=== PATIENT | male | born 1950 | race Caucasian/White ===

== ENCOUNTER → 2017-04-26 07:49 | Day surgery (SDC) | payer OTHER ==
[~2017-04-26 07:49] MED LIST: Diazepam TAB(*) 5 MG ONE; Heparin 2 UNITS/ML IVPREMIX* 3,000 ML IV ONE; Iohexol 350 (CONTRAST) 200 ML MDV IV ONE; Lidocaine 1% INJ* 10 MG/ML 30 ML SDV ONE; Midazolam* 1 MG/ML 10 ML VIAL (10 MG) ONE; NS 0.9% 1000 ML* 1,000 ML IV SCH; diPHENhydraMINE PO* 25 MG ONE; fentaNYL* 50 MCG/ML 2 ML VIAL (100 MCG VIAL) ONE
[2017-04-26 13:04] VITALS: BP 119/63
--- NOTE | 2017-04-27 09:58 | CATH ---
CC: Dr. Javi Bravo; Dr. Domingo Alcantar, [facility] [place], [facility] DATE OF CARDIAC CATHETERIZATION: 04/26/2017. PROCEDURE PERFORMED: Cardiac catheterization. INDICATION: Aortic stenosis. PROCEDURE INCLUDED: Left heart catheterization, coronary angiography. HISTORY: The patient is a 66-year-old gentleman with a history of known aortic stenosis. Recently, the patient had been getting some mild chest pain with exertion. A recent echocardiogram showed a no rmal LV size and systolic function, severe aortic stenosis with a mean gradient of 40 mmHg, a peak ve locity of 4 m/sec. Recent cardiac stress test showed an area of ischemia to his lateral wall. Cardia c catheterization was recommended. PROCEDURE: The patient was brought to the cardiac catheterization lab in a fasting state. Informed consent had been obtained prior to the procedure. All labs have been reviewed. The patient was plac ed supine on the procedure table. His femoral areas were cleaned and draped in the usual fashion. O ne percent Lidocaine was used for local anesthesia. The right femoral artery was entered via modifie d Seldinger technique and a 6 Armenian sheath introducer was placed. The patient underwent left heart catheterization and coronary angiography using a 6 Armenian pigtail catheter, 6 Armenian JL4 catheter, an d 6 Armenian JR4 catheter. The aortic valve was able to be crossed with a straight wire, but unable to advance a catheter across the aortic valve. At the end of the procedure, an angiogram of the femoral artery demonstrated norm al position and a Mynx closure device was deployed. The patient tolerated the procedure well. There were no complications. A total of 60 cc of Omnipaque dye was used. A total of 5.2 minutes of fluoro time was used. FINDINGS: Hemodynamic central aortic blood pressure 114/72. Coronary Arteries: 1. Left main artery: The left main was normal in size. It bifurcated into the LAD and circumflex. There was an ostial stenosis of the left main of at least 50 percent. There was dampening of the ca theter when the left main was engage. The distal left main had a 20 percent stenosis. 2. Left anterior descending artery: The LAD was normal in size. It gave off one diagonal vessel. The mid portion of the diagonal vessel had an eccentric 80 percent stenosis. The remainder of the ve ssel was without disease. The D1 vessel was without disease. 3. Left circumflex artery: The circumflex artery was normal in size. It gave off two obtuse margin al branches. The proximal portion of the left circumflex artery had an eccentric [address] enosis. The remainder of the vessel was without disease. 4. Right coronary artery: The RCA was occluded at its origin. There was faint wvxyi-gv-oyydn colla terals. There was faint vvwq-mo-zyibb collaterals to the PDA and posterolateral branches. IMPRESSION: 1. Severe stenosis to the ostial left main with at least a 50 percent stenosis. There was dampening of the catheter on engagement of the left main. 2. Eighty percent stenosis to the mid left anterior descending artery. 3. Eighty to ninety percent stenosis of the proximal left circumflex artery. 4. Occluded right coronary artery. 5. Mynx device to the right femoral artery. RECOMMENDATIONS: The patient will be referred for aortic valve replacement and coronary bypass surge ry. [id number] #: [id number]
== END | disposition home or self-care (01) ==
LOC: CHICATH 07:49
PROVIDERS: ATTEND Specialist
DX: I35.0 Nonrheumatic aortic (valve) stenosis (principal); I25.10 Atherosclerotic heart disease of native coronary artery without angina pectoris; I73.9 Peripheral vascular disease, unspecified; I10 Essential (primary) hypertension; Z87.891 Personal history of nicotine dependence
CPT/HCPCS: 93454; 99156; 99157; A9270-GY; C1760; C1769; C1887; J1644; J2250; J3010

== ENCOUNTER 2020-04-29 07:02 | Inpatient (IN) ==
[2020-04-29] MEDS ORDERED: NS 0.9% 1000 ml BAG 1,000 ML IV ONE ×2 (07:33→09:07)
[2020-04-29 07:45] LABS: ABS Lymphocytes 1.5 10^3/ul (1.0-4.8); ABS Monocytes 0.5 10^3/ul (0-0.8); ABS Neutrophils 9.9 10^3/ul (1.5-7.7); Eosinophil % 0.4 %; Hematocrit 37 % (42-52); Hemoglobin 12.5 g/dL (14.0-18.0); Lymphocyte % 12.5 %; Mean Corpuscular HGB Conc 34 g/dL (31-36); Mean Corpuscular Hemoglobin 33 pg (27-31); Mean Corpuscular Volume 99 fL (80-94); Mean Platelet Volume 9.4 fL (7.4-10.4); Platelet Count 176 10^3/uL (150-450); Red Blood Count 3.77 10^6 /uL (4.18-5.48); Red Cell Distribution Width 13 % (10-15); White Blood Count 11.9 10^3/uL (3.5-10.8)
[2020-04-29 08:03] LABS: ALT 19 U/L (7-52); AST 20 U/L (13-39); Albumin 3.6 g/dL (3.2-5.2); Albumin/Globulin Ratio 1.3 (1-3); Alkaline Phosphatase 45 U/L (34-104); Anion Gap 7 mmol/L (2-11); BUN/Creatinine Ratio 45.9 (8-20); Blood Urea Nitrogen 51 mg/dL (6-24); CO2 Carbon Dioxide 25 mmol/L (22-32); Calcium 9.1 mg/dL (8.6-10.3); Chloride 103 mmol/L (101-111); EGFR African American 79.7 (>60); EGFR Non-African American 65.9 (>60); Globulin 2.7 g/dL (2-4); Glucose 181 mg/dL (70-100); Potassium 4.8 mmol/L (3.5-5.0); Sodium 135 mmol/L (135-145); Total Protein 6.3 g/dL (6.4-8.9)
[2020-04-29] MEDS ORDERED: Pantoprazole 80 mg in NS BAG 80 MG/250 ML BAG IV ONE (08:06)
[2020-04-29] MEDS ORDERED: Pantoprazole VIAL 40 MG VIAL IV ONE (08:06)
[2020-04-29] MEDS ORDERED: Prothrombin Complex Conc. DOSE = Units Factor IX (nine) IV SLOW PU ONE (08:13)
[2020-04-29 08:20] LABS: Troponin I 0.43 ng/mL (<0.03)
[2020-04-29 08:27] LABS: Activated Partial Thrombo Time 23.4 seconds (26.0-38.0); INR 1.78 (0.82-1.09)
[2020-04-29] MEDS: Pantoprazole 80 mg in NS BAG 80 MG/250 ML BAG IV SCH ×2 (12:05→20:24)
[2020-04-29 12:39] LABS: Hematocrit 32 % (42-52); Hemoglobin 10.8 g/dL (14.0-18.0)
[2020-04-29 13:10] LABS: Troponin I 0.44 ng/mL (<0.03)
[2020-04-29] MEDS ORDERED: Midazolam 10 mg/10 ml VIAL 1 mg/ml 10 ml VIAL (10 mg) ONE (13:15)
[2020-04-29] MEDS ORDERED: fentaNYL 100 mcg/2 ml 50 MCG/ML VIAL ONE (13:16)
[2020-04-29 13:40] LABS: TSH Ultra Thyroid Stim Horm 1.24 mcIU/mL (0.34-5.60)
[2020-04-29 14:54] LABS: Hematocrit 33 % (42-52)
[2020-04-29 15:13] LABS: Troponin I 0.59 ng/mL (<0.03)
[2020-04-29 18:03] LABS: Hematocrit 33 % (42-52); Hemoglobin 11.1 g/dL (14.0-18.0)
[2020-04-29 22:20] LABS: Troponin I 0.32 ng/mL (<0.03)
[2020-04-30] MEDS ORDERED: Metoprolol Tartrate 5 mg VIAL 5 ml VIAL (1 mg/ml) IV ONE (03:36)
[2020-04-30] MEDS ORDERED: Metoprolol Tartrate 5 mg VIAL 5 ml VIAL (1 mg/ml) ONE (03:39)
[2020-04-30] MEDS ORDERED: Lactated Ringers 500 ml BAG 500 ML IV ONE (04:11)
[2020-04-30 04:55] LABS: ABS Eosinophils 0.3 10^3/ul (0-0.6); ABS Lymphocytes 2.1 10^3/ul (1.0-4.8); ABS Neutrophils 8.1 10^3/ul (1.5-7.7); Eosinophil % 2.5 %; Hematocrit 28 % (42-52); Hemoglobin 9.6 g/dL (14.0-18.0); Lymphocyte % 18.4 %; Mean Corpuscular HGB Conc 34 g/dL (31-36); Mean Corpuscular Hemoglobin 34 pg (27-31); Mean Corpuscular Volume 99 fL (80-94); Mean Platelet Volume 9.3 fL (7.4-10.4); Platelet Count 130 10^3/uL (150-450); Red Blood Count 2.83 10^6 /uL (4.18-5.48); Red Cell Distribution Width 13 % (10-15); White Blood Count 11.5 10^3/uL (3.5-10.8)
[2020-04-30 05:12] LABS: BUN/Creatinine Ratio 32.6 (8-20); EGFR African American 102.9 (>60); Potassium 4.2 mmol/L (3.5-5.0)
[2020-04-30] MEDS: Pantoprazole 80 mg in NS BAG 80 MG/250 ML BAG IV SCH ×2 (05:47→16:18)
[2020-04-30] MEDS: Digoxin IV 0.5 MG/2 ML AMP (0.25 MG/ML) IV SLOW PU SCH ×2 (07:58→09:41)
[2020-04-30] MEDS ORDERED: DIRECTIONS PO SCH (09:00)
[2020-04-30] MEDS ORDERED: COENZYME Q10 ENTER STREGNTH PO SCH (09:00)
[2020-04-30 09:41] LABS: Magnesium 1.7 mg/dL (1.9-2.7)
[2020-04-30] MEDS ORDERED: Magnesium Sulfate IV 3 GM in NS 0.9% 100 ml BAG 100 ML IVPB ONE (09:58)
[2020-04-30 10:01] LABS: Hematocrit 27 % (42-52); Hemoglobin 9.1 g/dL (14.0-18.0); Mean Corpuscular HGB Conc 34 g/dL (31-36); Mean Corpuscular Hemoglobin 34 pg (27-31); Mean Corpuscular Volume 101 fL (80-94); Mean Platelet Volume 9.5 fL (7.4-10.4); Platelet Count 130 10^3/uL (150-450); Red Blood Count 2.69 10^6 /uL (4.18-5.48); Red Cell Distribution Width 14 % (10-15); White Blood Count 10.5 10^3/uL (3.5-10.8)
[2020-04-30] MEDS ORDERED: Diltiazem IV push/loading dose 5 MG/ML 5 ML vial (25 mg) IV SLOW PU ONE (12:38)
[2020-04-30] MEDS ORDERED: NORMOSOL-R pH 7.4 1000 mL BAG 500 ML IV ONE (14:00)
[2020-04-30] MEDS ORDERED: Amiodarone IV 150 mg/3 ml VIAL SLOW PUSH ONE (15:09)
[2020-04-30] MEDS ORDERED: Amiodarone DRIP 150 MG in D5W 100 ML *LOADING DOSE* OVER 10 MIN IV ONE (15:15)
[2020-04-30] MEDS ORDERED: Amiodarone 360 MG IVPREMIX 360 MG/200 ML BAG IV ONE (15:25)
[2020-04-30] MEDS ORDERED: Digoxin IV 0.5 MG/2 ML AMP (0.25 MG/ML) IV SLOW PU ONE (18:32)
[2020-04-30 20:35] LABS: ABS Eosinophils 0.2 10^3/ul (0-0.6); ABS Lymphocytes 1.9 10^3/ul (1.0-4.8); Eosinophil % 2.1 %; Hematocrit 26 % (42-52); Hemoglobin 8.9 g/dL (14.0-18.0); Lymphocyte % 21.2 %; Mean Corpuscular HGB Conc 35 g/dL (31-36); Mean Corpuscular Hemoglobin 34 pg (27-31); Mean Corpuscular Volume 99 fL (80-94); Platelet Count 129 10^3/uL (150-450); Red Blood Count 2.58 10^6 /uL (4.18-5.48); Red Cell Distribution Width 14 % (10-15); White Blood Count 9.1 10^3/uL (3.5-10.8)
[2020-04-30] MEDS: Amiodarone 360 MG IVPREMIX 360 MG/200 ML BAG IV SCH (22:42)
[2020-05-01] MEDS: Pantoprazole 80 mg in NS BAG 80 MG/250 ML BAG IV SCH (03:49)
[2020-05-01 04:24] LABS: ABS Eosinophils 0.3 10^3/ul (0-0.6); ABS Neutrophils 5.9 10^3/ul (1.5-7.7); Eosinophil % 3.4 %; Hematocrit 26 % (42-52); Hemoglobin 9.1 g/dL (14.0-18.0); Lymphocyte % 21.5 %; Mean Corpuscular HGB Conc 35 g/dL (31-36); Mean Corpuscular Hemoglobin 35 pg (27-31); Mean Corpuscular Volume 99 fL (80-94); Mean Platelet Volume 8.8 fL (7.4-10.4); Platelet Count 128 10^3/uL (150-450); Red Blood Count 2.62 10^6 /uL (4.18-5.48); Red Cell Distribution Width 13 % (10-15); White Blood Count 9.2 10^3/uL (3.5-10.8)
[2020-05-01 04:41] LABS: BUN/Creatinine Ratio 23.9 (8-20); Calcium 8.4 mg/dL (8.6-10.3); EGFR Non-African American 81.8 (>60); Magnesium 2.1 mg/dL (1.9-2.7); Potassium 4.1 mmol/L (3.5-5.0)
[2020-05-01] MEDS ORDERED: Hyaluronidase HUMAN 15 UNIT in Sodium Chloride 0.9% 0.9 ML INTRADERM ONE (07:32)
[2020-05-01] MEDS: Amiodarone 400 mg TAB PO SCH ×2 (10:04→20:04)
[2020-05-01] MEDS: Amiodarone 360 MG IVPREMIX 360 MG/200 ML BAG IV SCH (10:05)
[2020-05-01] MEDS ORDERED: Pantoprazole VIAL 40 MG VIAL IV SCH (12:00)
[2020-05-01] MEDS: Pantoprazole VIAL 40 MG VIAL IV SCH (20:05)
[2020-05-01] MEDS ORDERED: Amiodarone 400 mg TAB PO SCH (21:00)
[2020-05-02] MEDS: Amiodarone 400 mg TAB PO SCH (09:11)
[2020-05-02] MEDS: Pantoprazole VIAL 40 MG VIAL IV SCH (09:12)
[2020-05-02 16:01] VITALS: BP 122/80
[2020-05-02] MEDS ORDERED: Pantoprazole VIAL 40 MG VIAL IV ONE (16:11)
== END 2020-05-02 16:55 | disposition home or self-care (01) | DRG 377 ==
LOC: ED 07:02 → MEDTELE 10:13 → ICU 04-30 09:33 → MEDTELE 05-01 21:03
PROVIDERS: ADMIT Internal Medicine; ATTEND Internal Medicine

== ENCOUNTER 2022-02-16 18:42 | Observation (INO) ==
[2022-02-16 20:00] LABS: ABS Basophils 0.1 10^3/ul (0-0.2); ABS Eosinophils 0.2 10^3/ul (0-0.6); ABS Lymphocytes 1.4 10^3/ul (1.0-4.8); ABS Monocytes 0.8 10^3/ul (0-0.8); ABS Neutrophils 6.2 10^3/ul (1.5-7.7); Eosinophil % 2.3 %; Hematocrit 44 % (42-52); Hemoglobin 15.4 g/dL (14.0-18.0); Lymphocyte % 15.7 %; Mean Corpuscular HGB Conc 35 g/dL (31-36); Mean Corpuscular Hemoglobin 36 pg (27-31); Mean Corpuscular Volume 101 fL (80-94); Mean Platelet Volume 9.5 fL (7.4-10.4); Platelet Count 119 10^3/uL (150-450); Red Blood Count 4.32 10^6 /uL (4.18-5.48); Red Cell Distribution Width 14 % (10-15); White Blood Count 8.8 10^3/uL (3.5-10.8)
[2022-02-16 20:09] LABS: Urine Appearance Clear; Urine Bilirubin Negative (Negative); Urine Blood Trace (Intact) (Negative); Urine Color Straw; Urine Glucose Negative (Negative); Urine Ketones Negative (Negative); Urine Nitrite Negative (Negative); Urine Protein Negative (Negative); Urine Specific Gravity 1.025 (1.005-1.030); Urine Urobilinogen 0.2 (Negative) (Negative)
[2022-02-16 20:15] LABS: Urine Bacteria Absent (Absent); Urine Red Blood Cell Trace(0-2/hpf) (Absent); Urine White Blood Cell Absent (Absent)
[2022-02-16 20:58] LABS: Albumin 3.8 g/dL (3.2-5.2); Albumin/Globulin Ratio 1.4 (1-3); Globulin 2.8 g/dL (2-4); Potassium 4.3 mmol/L (3.5-5.0); Total Bilirubin 1.5 mg/dL (0.2-1.0); Total Protein 6.6 g/dL (6.4-8.9); eGFR CKD-EPI 73.8 (>60)
[2022-02-16 21:26] LABS: High Sensitivity Troponin 1 Hr 10 pg/mL (<20)
[2022-02-16] MEDS ORDERED: Metoprolol Tartrate 5 mg VIAL 5 ml VIAL (1 mg/ml) IV ONE (21:35)
[2022-02-16] MEDS ORDERED: Iohexol 350 (CONTRAST) 500 ML MDV IV ONE (22:28)
[2022-02-16 23:02] LABS: HDL Cholesterol 34.7 mg/dL
[2022-02-17 00:51] LABS: Magnesium 1.7 mg/dL (1.9-2.7)
[2022-02-17 05:30] LABS: ABS Basophils 0.2 10^3/ul (0-0.2); ABS Eosinophils 0.2 10^3/ul (0-0.6); ABS Lymphocytes 1.6 10^3/ul (1.0-4.8); ABS Monocytes 0.8 10^3/ul (0-0.8); Eosinophil % 3.6 %; Hematocrit 42 % (42-52); Hemoglobin 14.4 g/dL (14.0-18.0); Lymphocyte % 23.3 %; Mean Corpuscular HGB Conc 35 g/dL (31-36); Mean Corpuscular Hemoglobin 35 pg (27-31); Mean Corpuscular Volume 102 fL (80-94); Mean Platelet Volume 8.9 fL (7.4-10.4); Nucleated Red Blood Cells % 0.1; Platelet Count 113 10^3/uL (150-450); Red Blood Count 4.09 10^6 /uL (4.18-5.48); Red Cell Distribution Width 14 % (10-15); White Blood Count 6.9 10^3/uL (3.5-10.8)
[2022-02-17 06:18] LABS: Blood Urea Nitrogen 15 mg/dL (6-24); CO2 Carbon Dioxide 27 mmol/L (22-32); Calcium 8.1 mg/dL (8.6-10.3); Chloride 105 mmol/L (101-111); Glucose 89 mg/dL (70-100); Sodium 139 mmol/L (135-145); eGFR CKD-EPI 91.9 (>60)
[2022-02-17 06:38] LABS: Erythrocyte Sed Rate 2 mm/Hr (0-19)
[2022-02-17 06:57] LABS: Anion Gap 7 mmol/L (2-11)
[2022-02-17 08:14] LABS: Magnesium 1.7 mg/dL (1.9-2.7)
[2022-02-17] MEDS ORDERED: Magnesium Sulfate 2 gm BAG 2 GM/50 ML BAG IVPB ONE (11:29)
[2022-02-17 16:05] VITALS: BP 118/82
== END 2022-02-17 16:15 | disposition home or self-care (01) ==
LOC: EDHOLD 18:42 → ED 18:42 → EDHOLD 02-17 16:13
PROVIDERS: ADMIT Internal Medicine; ATTEND Internal Medicine